=== PATIENT | male | born 1980 | race Two or more races ===

== ENCOUNTER 2017-01-02 10:00 | Emergency (ER) | payer SELFPAY ==
[2017-01-02] MEDS ORDERED: Proparacaine 0.5% Ophth Soln 15 ML Bottle EYELF STA (10:46)
--- NOTE | 2017-01-02 11:07 | EDM.PDOC ---
ED HPI GENERAL MEDICAL PROBLEM - General Chief Complaint: Eye Problems Stated Complaint: LEFT EYE PAIN Time Seen by Provider: 01/02/17 11:05 Source of Information: Reports: Patient History Limitations: Reports: No Limitations - History of Present Illness INITIAL COMMENTS - FREE TEXT/NARRATIVE: HISTORY AND PHYSICAL: History of present illness: Patient is a 36-year-old male that presents to the emergency room today with complaints of left eye pain. 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 Patient reports that 2 days ago he was grinding some metal and felt a piece hit him in the eye regardless of safety measures. She reports that he was able to remove a piece of metal from his eye yesterday but still having irritation. Patient reports that does not affect his vision. Patient has a normal variance of glaucoma and is legally blind in the right eye. Denies any changes or complications with the right eye today. Review of systems: As per history of present illness and below otherwise all systems reviewed and negative. Past medical history: As per history of present illness and as reviewed below otherwise noncontributory. Surgical history: As per history of present illness and as reviewed below otherwise noncontributory. Social history: No reported history of drug or alcohol abuse. Family history: As per history of present illness and as reviewed below otherwise noncontributory. Physical exam: HEENT: Atraumatic, normocephalic, pupils reactive, patient is legally blind in the right eye and also has glaucoma to that eye. Scleral injection noted to left eye with pinpoint foreign body in the center, with corneal abrasion noted to the 6 o'clock position, noted on fluoroscopy seen eye exams. mucous membranes moist, throat clear, neck supple, nontender, trachea midline. Lungs: Clear to auscultation, breath sounds equal bilaterally, chest nontender. Heart: S1S2, regular rate and rhythm Abdomen: Soft, nondistended, nontender. Pelvis: Stable nontender. Genitourinary: Deferred. Rectal: Deferred. Extremities: Atraumatic. Neurovascular unremarkable. Neuro: Awake, alert, oriented. Cranial nerves II through XII unremarkable. Cerebellum unremarkable. Motor and sensory unremarkable throughout. Exam nonfocal. Diagnostics: Fluorosene eye exam Therapeutics: Proparacaine, eye irrigation Spoke with reviewed this case with him. He would like to see the patient at [facility] after his discharge from the ER. He states he will provide further care and prescribed antibiotics as needed. Discussed this with patient. He reports he will go directly to [facility] after being discharged from the emergency room. He is agreeable with plan of care Impression: Foreign body of left eye Corneal abrasion Definitive disposition and diagnosis as appropriate pending reevaluation and review of above. Onset Date: 12/31/16 Duration: Day(s): (2) Location: Reports: Face left eye Pain Score (Numeric/FACES): 4 - Related Data Allergies Allergy/AdvReac Type Severity Reaction Status Date / Time No Known Allergies Allergy Verified 01/02/17 10:07 Home Meds: Home Meds . [No Known Home Meds] 01/02/17 [History] Past Medical History - Past Health History Medical/Surgical History: Denies Medical/Surgical History HEENT History: Reports: Glaucoma, Other (See Below) Other HEENT History: right eye Social & Family History - Family History Family Medical History: Noncontributory - Tobacco Use Smoking Status *Q: Never Smoker - Recreational Drug Use Recreational Drug Use: No ED ROS GENERAL - Review of Systems Review Of Systems: ROS reveals no pertinent complaints other than HPI. ED EXAM GENERAL W FULL EYE - Physical Exam Exam: See Below (See dictation) Course - Vital Signs Last Recorded V/S: Last Vital Signs Temp 36.9 C 01/02/17 10:00 Pulse 71 01/02/17 10:00 Resp 18 01/02/17 10:00 BP 137/86 01/02/17 10:00 Pulse Ox 100 01/02/17 10:00 - Orders/Labs/Meds Orders: Active Orders 24 hr Category Date Time Status Eye Irrigation [RC] ASDIRECTED Care 01/02/17 11:07 Ordered Meds: Medications Discontinued Medications Generic Name Dose Route Start Last Admin Trade Name Freq PRN Reason Stop Dose Admin Proparacaine HCl 2 ml 01/02/17 10:46 Proparacaine 0.5% Ophth Soln EYELF 01/02/17 10:47 NOW STA Departure - Departure Time of Disposition: 11:16 Disposition: Home, Self-Care 01 Clinical Impression: Foreign body, intraocular, left eye Qualifiers: Encounter type: initial encounter Qualified Code(s): S05.52XA - Penetrating wound with foreign body of left eyeball, initial encounter - Discharge Information Referrals: PCP,None [Primary Care Provider] - Forms: ED Department Discharge Additional Instructions: The following information is given to patients seen in the emergency department who are being discharged to home. This information is to outline your options for follow-up care. We provide all patients seen in our emergency department with a follow-up referral. The need for follow-up, as well as the timing and circumstances, are variable depending upon the specifics of your emergency department visit. If you don't have a primary care physician on staff, we will provide you with a referral. We always advise you to contact your personal physician following an emergency department visit to inform them of the circumstance of the visit and for follow-up with them and/or the need for any referrals to a consulting specialist. The emergency department will also refer you to a specialist when appropriate. This referral assures that you have the opportunity for followup care with a specialist. All of these measure are taken in an effort to provide you with optimal care, which includes your followup. Under all circumstances we always encourage you to contact your private physician who remains a resource for coordinating your care. When calling for followup care, please make the office aware that this follow-up is from your recent emergency room visit. If for any reason you are refused follow-up, please contact the [facility] emergency department at and ask to speak to the emergency department charge nurse. [address] [place] [address] Please go directly to [facility] across the bypass to see , the handle lathe operator. He has agreed to further evaluate and treat you. The address and phone number are listed above. Please return to the ED as needed as discussed - My Orders Last 24 Hours: My Active Orders 01/02/17 11:07 Eye Irrigation [RC] ASDIRECTED - Assessment/Plan Last 24 Hours: My Active Orders 01/02/17 11:07 Eye Irrigation [RC] ASDIRECTED
[2017-01-02 11:43] VITALS: BP 120/70
== END 2017-01-02 11:35 | disposition home or self-care (01) ==
LOC: MW.ED 10:00
DX: T15.02XA Foreign body in cornea, left eye, initial encounter (principal); S05.52XA Penetrating wound with foreign body of left eyeball, initial encounter
CPT/HCPCS: 99282; 99283